=== PATIENT | female | born 1970 | race Caucasian/White ===

== ENCOUNTER 2016-05-20 07:21 | Day surgery (SDC) | payer OTHER ==
[~2016-05-20 07:21] MED LIST: CLARITIN-D 121 EAC1 PO; MULTIVITAMINS1 EAC6 PO
== END 2016-05-20 11:50 ==
LOC: SHSB 07:21 → ORW 08:58 → PACU 09:45
PROC: 0HBU0ZZ Excision of Left Breast, Open Approach (ICD-10-PCS; principal; 2016-05-20)
DX: N60.12 Diffuse cystic mastopathy of left breast (principal); N60.22 Fibroadenosis of left breast; N60.92 Unspecified benign mammary dysplasia of left breast
CPT/HCPCS: J0690; J2250; J2765; J3010